=== PATIENT | female | born 1950 | race Caucasian/White ===

== ENCOUNTER 2018-07-17 16:29 | Emergency (ER) | payer MEDICARE, MEDICAID ==
[~2018-07-17] VITALS: Ht 160 cm; Wt 52.3 kg
[2018-07-17 16:50] VITALS: BP 144/77
[2018-07-17] MEDS ORDERED: GABA-530 PO (18:32)
== END 2018-07-17 18:45 | disposition home or self-care (01) ==
LOC: ER 16:29
DX: M25.551 Pain in right hip (principal); H02.89 Other specified disorders of eyelid; Z79.899 Other long term (current) drug therapy
CPT/HCPCS: 73502; 99283